=== PATIENT | female | born 1975 ===

== ENCOUNTER → 2024-02-28 | Outpatient (CLI) | payer BC ==
[~2024-02-28] VITALS: Ht 162.6 cm; Wt 103.0 kg
[~2024-02-28] MED LIST: ADENOSINE 86 MG in GIVE UN-DILUTED 0 ML IV ONE; ADENOSINE 90 MG/30 ML INJ IV ONE
== END | disposition home or self-care (01) ==
LOC: Rad HDHVI 08:37
PROVIDERS: ATTEND Internal Medicine Cardiovascular Disease
DX: I10 Essential (primary) hypertension (principal); R07.89 Other chest pain; E78.5 Hyperlipidemia, unspecified; R06.02 Shortness of breath; R42 Dizziness and giddiness; Z82.49 Family history of ischemic heart disease and other diseases of the circulatory system
CPT/HCPCS: 78452; 93005; 96374; 96375; A9500; J0153